=== PATIENT | female | born 1990 | race Caucasian/White ===

== ENCOUNTER 2017-02-21 08:03 | Outpatient (CLI) | payer MEDICAID ==
--- NOTE | 2017-02-21 08:37 | RAD ---
KUB: Date: 02/21/17 HISTORY: Kidney stone. FINDINGS/IMPRESSION: A right-sided ureteral stent is present. There are calculi in the right kidney measuring 9.0 and 11. 0 mm, respectively. POS: [facility]
== END 2017-02-21 08:04 | disposition home or self-care (01) ==
LOC: RAD 08:03
PROVIDERS: ATTEND Urology
DX: N20.0 Calculus of kidney (principal); Z96.0 Presence of urogenital implants
CPT/HCPCS: 74000

== ENCOUNTER 2017-03-01 13:17 | Outpatient (CLI) | payer MEDICAID | END 2017-03-01 13:18 | disposition home or self-care (01) | LOC: LABBT 13:17 | PROVIDERS: ATTEND Urology | DX: Z01.818 Encounter for other preprocedural examination (principal); N20.1 Calculus of ureter ==

== ENCOUNTER 2017-03-19 14:44 | Outpatient (CLI) | payer MEDICAID ==
--- NOTE | 2017-03-19 17:10 | RAD ---
KUB 03/19/17 COMPARISON: 02/21/17 HISTORY: Renal calculus. FINDINGS: Postoperative clips overlie the pelvis, evidence of prior tubal ligation. Previously noted double-J ureteral stent on the right has been removed. Two calcifications overlie the right renal shadow, one in the mid pole region measuring in the 8-9 mm range and one in the lower pole region measuring in the 9-10 mm range, stable. the bowel gas pattern appears nonobstructed. IMPRESSION: Two calcifications in the right upper quadrant suggests stable right renal calculi. Interval removal of right double-J ureteral stent. POS: [facility]
== END 2017-03-19 14:45 | disposition home or self-care (01) ==
LOC: RAD 14:44
PROVIDERS: ATTEND Urology
DX: N20.0 Calculus of kidney (principal)
CPT/HCPCS: 74000